=== PATIENT | female | born 1970 | race Caucasian/White ===

== ENCOUNTER 2019-11-05 13:53 | Emergency (ER) | payer OTHER, SELFPAY ==
[~2019-11-05] VITALS: Ht 162.6 cm; Wt 68.0 kg
[2019-11-05 13:56] VITALS: Ht 162.6 cm; Wt 68.0 kg
[2019-11-05 15:08] VITALS: BP 130/89
== END 2019-11-05 15:08 | disposition home or self-care (01) ==
LOC: ED 13:53
DX: U07.1 COVID-19 (principal); B34.9 Viral infection, unspecified; I10 Essential (primary) hypertension
CPT/HCPCS: U0003-CS

== ENCOUNTER 2020-03-31 16:18 | Emergency (ER) | payer OTHER ==
[~2020-03-31] VITALS: Ht 162.6 cm; Wt 68.0 kg
[2020-03-31 17:04] VITALS: BP 153/90; Ht 162.6 cm; Wt 68.0 kg
== END 2020-03-31 17:15 | disposition home or self-care (01) ==
LOC: ED 16:18
DX: S61.431A Puncture wound without foreign body of right hand, initial encounter (principal); I10 Essential (primary) hypertension; W46.1XXA Contact with contaminated hypodermic needle, initial encounter; Y93.89 Activity, other specified; Y92.89 Other specified places as the place of occurrence of the external cause; Y99.8 Other external cause status

== ENCOUNTER 2020-05-31 17:05 | Emergency (ER) | payer OTHER ==
[~2020-05-31] VITALS: Ht 162.6 cm; Wt 68.0 kg
[2020-05-31 17:36] VITALS: Ht 162.6 cm; Wt 68.0 kg
[2020-05-31] MEDS ORDERED: TRUVADA 200 MG1 EACH PO (18:26)
[2020-05-31] MEDS ORDERED: TIVICAY50 MG PO (18:26)
[2020-05-31 19:21] VITALS: BP 144/99
== END 2020-05-31 19:20 | disposition home or self-care (01) ==
LOC: ED 17:05
DX: S61.432A Puncture wound without foreign body of left hand, initial encounter (principal); W46.0XXA Contact with hypodermic needle, initial encounter; Y93.89 Activity, other specified; Y92.89 Other specified places as the place of occurrence of the external cause; Y99.8 Other external cause status
CPT/HCPCS: 90715